=== PATIENT | female | born 2005 | race Hispanic/Latino ===

== ENCOUNTER 2024-01-08 20:42 | Emergency (ER) | payer OTHER ==
[2024-01-08] MEDS ORDERED: Ibuprofen 200 MG TAB ONE (22:29)
== END 2024-01-09 00:06 | disposition home or self-care (01) ==
LOC: ERS 20:43
DX: S09.90XA Unspecified injury of head, initial encounter (principal); R51.9 Headache, unspecified; R29.700 NIHSS score 0; F17.290 Nicotine dependence, other tobacco product, uncomplicated; W20.8XXA Other cause of strike by thrown, projected or falling object, initial encounter
CPT/HCPCS: 70450

== ENCOUNTER 2024-06-27 19:42 | Emergency (ER) | payer OTHER, SELFPAY ==
[2024-06-27 21:23] LABS: #Basophils 0.05 10x3/uL (0.0-0.2); %Basophils 0.6 % (0.0-1.0); %Lymphocytes 30.8 % (28.0-48.0); %Monocytes 6.2 % (0.0-4.0); %Neutrophils 61.2 % (31.0-61.0); Hematocrit 38.9 % (36.0-47.0); Hemoglobin 13.4 g/dL (12.0-16.0); Mean Corpuscular HGB CONC 34.4 g/dL (32.0-36.0); Mean Corpuscular Hemoglobin 25.8 pg (25.0-35.0); Mean Platelet Volume 10.5 fL (7.4-10.4); Platelet Count 339 10x3/uL (130-400); RBC Distribution Width 14.4 % (11.5-14.5); Red Blood Cell (RBC) Count 5.19 mill/uL (4.00-5.20)
[2024-06-27 21:37] LABS: BHCG - Serum Negative (NEGATIVE); Pregs Control Background? CLEAR/WHITE (CLR/WHITE); Pregs Control Bar Appear? YES (CONTROL BAR)
[2024-06-27 21:39] LABS: Anion Gap 13 mmol/L (10-20); BUN (Urea Nitrogen) 7 mg/dL (7.0-18.7); Calc. Creatinine Clearance 0 mL/min (70-130); Calcium 9.4 mg/dL (7.8-10.44); Carbon Dioxide 24 mmol/L (22-29); Chloride 105 mmol/L (98-107); Estimated GFR 132; Glucose 90 mg/dL (70-105); Potassium 4.1 mmol/L (3.5-5.1); Sodium 138 mmol/L (136-145)
== END 2024-06-27 21:53 | disposition home or self-care (01) ==
LOC: ERS 19:42
DX: G51.0 Bell's palsy (principal); Z55.6 Problems related to health literacy; F17.290 Nicotine dependence, other tobacco product, uncomplicated
CPT/HCPCS: 36415; 80048; 84703; 85025; 99283